=== PATIENT | male | born 1980 | race Asian ===

== ENCOUNTER → 2016-05-09 | Outpatient (CLI) | payer BC ==
--- NOTE | 2016-05-09 13:19 | DIAGNOSTIC IMAGING REPORT ---
RENAL ULTRASOUND HISTORY: HEMATURIA COMPARISON: None. FINDINGS: Right kidney: 12.1 cm maximum dimension. No evidence for hydronephrosis. Normal corticomedullary differentiation and cortical thickness. Left kidney: Maximum dimension 11.1 cm. No evidence for hydronephrosis. Normal corticomedullary differentiation and cortical thickness. Bladder: No bladder wall thickening. The bilateral ureteral jets were identified. IMPRESSION: Normal renal ultrasound. Electronically signed by: Deepak Acuña M.D. 05/09/2016 1:18 PM Dictated Date/Time: 05/09/2016 1:17 PM
--- NOTE | 2016-05-09 13:35 | DIAGNOSTIC IMAGING REPORT ---
ABDOMEN LIMITED (US) CLINICAL HISTORY: Right lower quadrant abdominal pain. COMPARISON STUDY: None. FINDINGS: Small hypoechoic structure within the right lower quadrant which measures approximately 2.5 x 0.7 cm. This is superficial to the common femoral vessels. This is nonspecific but could represent a tiny fat-containing inguinal hernia. IMPRESSION: Small hypoechoic structure within the right lower quadrant superficial to the common femoral vessels. This is nonspecific but could represent a tiny fat-containing inguinal hernia. Nonemergent pelvis CT can be used for confirmation. Electronically signed by: Grayson Mccormick M.D. 05/09/2016 1:33 PM Dictated Date/Time: 05/09/2016 1:31 PM
== END | disposition home or self-care (01) ==
LOC: C.ULTR 12:05
PROVIDERS: ATTEND Nurse Practitioner Family
DX: R10.31 Right lower quadrant pain (principal); R31.9 Hematuria, unspecified